=== PATIENT | female | born 1955 | race Two or more races ===

== ENCOUNTER 2017-10-11 01:18 | Emergency (ER) | payer OTHER ==
[~2017-10-11] VITALS: Ht 160 cm; Wt 68.0 kg
[~2017-10-11 01:18] MED LIST: ADEMPAS1 MG; CODE1TAB37 PO; LEVAQUIN750 MG PO; MEDROL4 MG; MILLIPRED5 MG; PREVACID 15MG15 MG; Pulmicort 0.5 MG/2 M IH; TRAM1TAB98 PO; Tussi-Organidin Dm-S PO; XOPENEX0.63 MG/3 IH
== END 2017-10-11 10:28 | disposition home or self-care (01) ==
LOC: ER 01:18
DX: I73.01 Raynaud's syndrome with gangrene (principal); J84.10 Pulmonary fibrosis, unspecified; M34.9 Systemic sclerosis, unspecified

== ENCOUNTER 2017-11-28 23:31 | Inpatient (IN) | payer OTHER ==
[~2017-11-28] VITALS: Ht 160 cm; Wt 68.0 kg
[2017-12-09] MEDS ORDERED: PREDNISONE10 MG PO (16:29)
[2017-12-09] MEDS ORDERED: ADEMPAS1 MG PO (16:29)
[2017-12-09] MEDS ORDERED: NeurRONTin 100mg cap PO (16:29)
[2017-12-09] MEDS ORDERED: ZOLPIDEM TARTRA10 MG PO (16:29)
[2017-12-09] MEDS ORDERED: XOPENEX0.63 MG/3 IH (16:29)
[2017-12-09] MEDS ORDERED: PERCOCET 10-321 EACH PO (16:31)
[2017-12-09] MEDS ORDERED: PERCOCET 5-3251 EACH PO (16:34)
== END 2017-12-09 18:04 | disposition home health service (06) | DRG 463 ==
LOC: ER 23:31 → MEDJ 11-29 10:39 → MEDI 11-29 10:39 → MEDJ 11-30 12:38 → MEDI 11-30 12:38 → MEDJ 12-02 12:22
PROVIDERS: Specialist
PROC: 3E0F7GC Introduction of Other Therapeutic Substance into Respiratory Tract, Via Natural or Artificial Opening (ICD-10-PCS; 2017-11-29)
PROC: B246ZZZ Ultrasonography of Right and Left Heart (ICD-10-PCS; 2017-11-30)
PROC: 8E0ZXY6 Isolation (ICD-10-PCS; 2017-11-30)
PROC: 05H433Z Insertion of Infusion Device into Left Innominate Vein, Percutaneous Approach (ICD-10-PCS; 2017-12-01)
PROC: 0Y6Y0Z0 Detachment at Left 5th Toe, Complete, Open Approach (ICD-10-PCS; 2017-12-04)
PROC: 0JBR0ZZ Excision of Left Foot Subcutaneous Tissue and Fascia, Open Approach (ICD-10-PCS; principal; 2017-12-04 10:45)
DX: I73.01 Raynaud's syndrome with gangrene (principal); J18.9 Pneumonia, unspecified organism; M34.81 Systemic sclerosis with lung involvement; E09.52 Drug or chemical induced diabetes mellitus with diabetic peripheral angiopathy with gangrene; E27.3 Drug-induced adrenocortical insufficiency; L97.528 Non-pressure chronic ulcer of other part of left foot with other specified severity; J20.9 Acute bronchitis, unspecified; J84.112 Idiopathic pulmonary fibrosis; R09.02 Hypoxemia; I27.29 Other secondary pulmonary hypertension; Z79.52 Long term (current) use of systemic steroids; R60.1 Generalized edema; E09.65 Drug or chemical induced diabetes mellitus with hyperglycemia; T38.0X5A Adverse effect of glucocorticoids and synthetic analogues, initial encounter; B96.4 Proteus (mirabilis) (morganii) as the cause of diseases classified elsewhere; B95.2 Enterococcus as the cause of diseases classified elsewhere; B96.5 Pseudomonas (aeruginosa) (mallei) (pseudomallei) as the cause of diseases classified elsewhere; I27.81 Cor pulmonale (chronic); L03.032 Cellulitis of left toe; D64.89 Other specified anemias; B95.61 Methicillin susceptible Staphylococcus aureus infection as the cause of diseases classified elsewhere

== ENCOUNTER 2018-01-16 19:49 | Inpatient (IN) | payer OTHER ==
[~2018-01-16] VITALS: Ht 165.1 cm; Wt 72.6 kg
[~2018-01-16 19:49] MED LIST changes: +ADEMPAS1 MG PO; +NeurRONTin 100mg cap PO; +PERCOCET 10-321 EACH PO; +PERCOCET 5-3251 EACH PO; +PREDNISONE10 MG PO; +ZOLPIDEM TARTRA10 MG PO
[2018-02-03] MEDS ORDERED: XOPENEX0.63 MG/3 IH (09:40)
[2018-02-03] MEDS ORDERED: LOPRESSOR25 MG PO (09:40)
[2018-02-03] MEDS ORDERED: ADEMPAS1 MG PO (09:41)
[2018-02-03] MEDS ORDERED: PREDNISONE10 MG PO (09:41)
[2018-02-03] MEDS ORDERED: LASIX40 MG PO (09:42)
== END 2018-02-03 14:22 | disposition home or self-care (01) | DRG 166 ==
LOC: ER 19:49 → ICU 01-17 08:38 → ICU-2 01-17 08:38 → ICU 01-18 13:34 → SURH 01-23 11:29 → MEDI 01-23 11:29 → SURH 01-23 11:33
PROC: 3E0F7GC Introduction of Other Therapeutic Substance into Respiratory Tract, Via Natural or Artificial Opening (ICD-10-PCS; 2018-01-17)
PROC: 4A033R1 Measurement of Arterial Saturation, Peripheral, Percutaneous Approach (ICD-10-PCS; 2018-01-17)
PROC: B246ZZZ Ultrasonography of Right and Left Heart (ICD-10-PCS; 2018-01-17)
PROC: 5A09457 Assistance with Respiratory Ventilation, 24-96 Consecutive Hours, Continuous Positive Airway Pressure (ICD-10-PCS; 2018-01-17)
PROC: 02HV33Z Insertion of Infusion Device into Superior Vena Cava, Percutaneous Approach (ICD-10-PCS; 2018-01-20)
PROC: BB24ZZZ Computerized Tomography (CT Scan) of Bilateral Lungs (ICD-10-PCS; 2018-01-22)
PROC: 4A12X4Z Monitoring of Cardiac Electrical Activity, External Approach (ICD-10-PCS; 2018-01-23)
PROC: 0JBR0ZZ Excision of Left Foot Subcutaneous Tissue and Fascia, Open Approach (ICD-10-PCS; principal; 2018-01-30)
DX: M34.81 Systemic sclerosis with lung involvement (principal); J96.02 Acute respiratory failure with hypercapnia; J18.9 Pneumonia, unspecified organism; J81.0 Acute pulmonary edema; I73.01 Raynaud's syndrome with gangrene; J90 Pleural effusion, not elsewhere classified; E27.49 Other adrenocortical insufficiency; L03.116 Cellulitis of left lower limb; I50.813 Acute on chronic right heart failure; J84.112 Idiopathic pulmonary fibrosis; I27.29 Other secondary pulmonary hypertension; I27.81 Cor pulmonale (chronic); Z79.52 Long term (current) use of systemic steroids; Z66 Do not resuscitate; K44.9 Diaphragmatic hernia without obstruction or gangrene; Z89.422 Acquired absence of other left toe(s); J20.9 Acute bronchitis, unspecified; D64.89 Other specified anemias; E09.9 Drug or chemical induced diabetes mellitus without complications; T38.0X5A Adverse effect of glucocorticoids and synthetic analogues, initial encounter

== ENCOUNTER 2018-08-23 21:45 | Inpatient (IN) | payer OTHER ==
[~2018-08-23] VITALS: Ht 160 cm; Wt 69.4 kg
[~2018-08-23 21:45] MED LIST changes: +LASIX40 MG PO; +LOPRESSOR25 MG PO
--- NOTE | 2018-08-23 22:04 | NUR ---
SE RECIBE PTE FEMINA ALERTA Y ORIENTADA X3 EN AMBULANCIA. PTE ES DEPENDIENTE DE OXIGENO Y HACE 2 SEMANAS PRESENTA DIFICULTAD PARA RESPIRAR Y CELLULITIS EN AMBAS PIERNAS. PTE SE LE REALIZA EKG Y SE LE PRESENTA A LA JUSTIN RENTA. SE UBICA PTE EN CAMA K8 Y SE CONECTA A MONITOR CARDIACO Y OXIMETRIA.
--- NOTE | 2018-08-23 22:22 | NUR ---
PTE EVALUADA POR LA DRA MUJICA QUIEN ORDENA EL [place]. MS Ezio AGIUAR ORIENA SOBRE EL MISMO, LO CUAL REFIERE ENTENDER, REALIZA PRUEBAS DE LABORATORIO Y ADMINISTRA MEDICAMENTOS JEANA ORDEN MEDICA Y SIGUIENDO MEDIDAS ASEPTICAS. PTE COLOCADA EN MONITOR CARDIACO. MS Ezio AGUIAR COLOCA ZAVALA JEANA ORDEN MEDICA Y SIGUIENDO MEDIDAS ASEPTICAS Y ESTERILES, APROXIMADAMENTE 50 ML DE ORINA COLOR AMARILLO OBSCURO.
--- NOTE | 2018-08-24 07:55 | NUR ---
PACIENTE ALERTA Y ORIENTADA POR DOMINGO ESFEERAS EN CAMA CONECTADA A MONITOR CARDIACO CON RITMO CARDIACO REGULAR. SE OBSERVA H/L PATENTE CARL DE EDEMA Y ENROJECIMIENTO. SE OBSERVA SONDA URINARIA PATENTE DRENANDO A GRAVEDAD ORINA COLOR AMARILLO INTENSO. PENDIENTE CONSULTA CON DR. Silvia DALLAS.
[2018-08-25] MEDS ORDERED: BUDESONIDE0.5 MG/2 M IH (08:22)
[2018-08-25] MEDS ORDERED: GABAPENTIN100 MG PO (08:24)
[2018-08-25] MEDS ORDERED: GUAIFEN-CODEINE10 ML PO (13:22)
== END 2018-09-08 22:14 | disposition expired | DRG 291 ==
LOC: ER 21:45 → SEC-K 08-24 14:27 → SURH 08-24 14:27 → MEDJ 08-25 14:04 → SEC-K 08-25 14:17 → SURH 08-25 17:06
PROVIDERS: ADMIT Internal Medicine
PROC: 3E0F7GC Introduction of Other Therapeutic Substance into Respiratory Tract, Via Natural or Artificial Opening (ICD-10-PCS; 2018-08-24)
PROC: 4A033R1 Measurement of Arterial Saturation, Peripheral, Percutaneous Approach (ICD-10-PCS; 2018-08-24)
PROC: 0T9B70Z Drainage of Bladder with Drainage Device, Via Natural or Artificial Opening (ICD-10-PCS; 2018-08-24)
PROC: 8E0ZXY6 Isolation (ICD-10-PCS; 2018-08-24)
PROC: 0HB1XZX Excision of Face Skin, External Approach, Diagnostic (ICD-10-PCS; 2018-08-26)
PROC: 02HV33Z Insertion of Infusion Device into Superior Vena Cava, Percutaneous Approach (ICD-10-PCS; 2018-08-26)
PROC: 5A09457 Assistance with Respiratory Ventilation, 24-96 Consecutive Hours, Continuous Positive Airway Pressure (ICD-10-PCS; principal; 2018-08-30)
PROC: B44HZZZ Ultrasonography of Bilateral Lower Extremity Arteries (ICD-10-PCS; 2018-08-30)
PROC: B246ZZZ Ultrasonography of Right and Left Heart (ICD-10-PCS; 2018-08-30)
DX: I13.0 Hypertensive heart and chronic kidney disease with heart failure and stage 1 through stage 4 chronic kidney disease, or unspecified chronic kidney disease (principal); I50.33 Acute on chronic diastolic (congestive) heart failure; J96.21 Acute and chronic respiratory failure with hypoxia; I26.92 Saddle embolus of pulmonary artery without acute cor pulmonale; M34.81 Systemic sclerosis with lung involvement; L03.116 Cellulitis of left lower limb; I27.82 Chronic pulmonary embolism; N39.0 Urinary tract infection, site not specified; R65.10 Systemic inflammatory response syndrome (SIRS) of non-infectious origin without acute organ dysfunction; I96 Gangrene, not elsewhere classified; E87.2 Acidosis; N17.9 Acute kidney failure, unspecified; E27.1 Primary adrenocortical insufficiency; L03.115 Cellulitis of right lower limb; J96.12 Chronic respiratory failure with hypercapnia; E87.4 Mixed disorder of acid-base balance; I50.32 Chronic diastolic (congestive) heart failure; B95.1 Streptococcus, group B, as the cause of diseases classified elsewhere; I11.0 Hypertensive heart disease with heart failure; Z99.81 Dependence on supplemental oxygen; J20.9 Acute bronchitis, unspecified; I27.24 Chronic thromboembolic pulmonary hypertension; Z79.01 Long term (current) use of anticoagulants; R60.1 Generalized edema; Z66 Do not resuscitate; Z89.422 Acquired absence of other left toe(s); N18.3 Chronic kidney disease, stage 3 (moderate); D63.1 Anemia in chronic kidney disease; G47.09 Other insomnia; D50.8 Other iron deficiency anemias; B89 Unspecified parasitic disease; R94.6 Abnormal results of thyroid function studies; E86.0 Dehydration